=== PATIENT | female | born 1990 | race Caucasian/White ===

== ENCOUNTER → 2017-03-15 | Outpatient (CLI) | payer BC | END | disposition home or self-care (01) | LOC: MW.LAB 09:21 | PROVIDERS: ATTEND Obstetrics & Gynecology | DX: N97.9 Female infertility, unspecified (principal) | CPT/HCPCS: 36415; 82670 ==

== ENCOUNTER → 2017-03-22 | Outpatient (CLI) | payer BC | LOC: MW.LAB 08:15 | PROVIDERS: ATTEND Obstetrics & Gynecology | DX: N97.9 Female infertility, unspecified (principal) | CPT/HCPCS: 36415; 82670 ==

== ENCOUNTER → 2017-03-26 | Outpatient (CLI) | payer BC | LOC: MW.LAB 09:37 | PROVIDERS: ATTEND Obstetrics & Gynecology | DX: N97.9 Female infertility, unspecified (principal) | CPT/HCPCS: 36415; 82670; 84144 ==

== ENCOUNTER 2017-12-10 08:10 | Inpatient (IN) | payer BC ==
[2017-12-10] MEDS ORDERED: Butorphanol 1 MG/ML SDV IVPUSH PRN (08:36)
[2017-12-10] MEDS ORDERED: Methylergonovine 0.2 MG/1 ML Amp IM PRN (08:36)
[2017-12-10] MEDS ORDERED: Misoprostol 200 MCG Tab PO PRN (08:36)
[2017-12-10] MEDS ORDERED: Carboprost Tromethamine 250 MCG/1 ML Amp IM PRN (08:36)
[2017-12-10] MEDS ORDERED: Lidocaine 1% 50 ML MDV INJECT PRN (08:36)
[2017-12-10] MEDS ORDERED: Sodium Chloride 0.9% 2.5 ML Syringe FLUSH PRN (08:36)
[2017-12-10] MEDS ORDERED: Sodium Chloride 0.9% 10 ML Syringe FLUSH PRN (08:36)
[2017-12-10] MEDS ORDERED: Water For Irrigation,Sterile 1,000 ML Container IRR PRN (08:36)
[2017-12-10] MEDS ORDERED: Nalbuphine 10 MG/1 ML Vial IVPUSH PRN (08:36)
[2017-12-10] MEDS ORDERED: Terbutaline 1 MG/ML SDV SUBCUT PRN (09:04)
[2017-12-10] MEDS ORDERED: Oxytocin/0.9 % Sodium Chloride 30 UNIT/500 ML BAG IV SCH (09:15)
[2017-12-10] MEDS ORDERED: Misoprostol 25 MCG (1/4 of 100 MCG) Tab VAG SCH (09:15)
[2017-12-10] MEDS: Lactated Ringers 1,000 ML IV SCH (15:15)
[2017-12-10] MEDS ORDERED: Misoprostol 200 MCG Tab VAG SCH (20:45)
[2017-12-10] MEDS: Misoprostol 25 MCG (1/4 of 100 MCG) Tab VAG PRN (21:05)
[2017-12-11] MEDS: Misoprostol 25 MCG (1/4 of 100 MCG) Tab VAG PRN ×2 (01:08→05:04)
[2017-12-11] MEDS ORDERED: fentaNYL 100 MCG/2 ML SDV ONE (08:20)
[2017-12-11] MEDS ORDERED: Ropivacaine 0.2% 2 MG/ML 20 ML SDV ONE (08:21)
[2017-12-11] MEDS: Lactated Ringers 1,000 ML IV SCH (08:35)
[2017-12-11] MEDS ORDERED: Bupivacaine 0.5% 10 ML SDV ONE (09:37)
--- NOTE | 2017-12-11 09:56 | PCM.PREANE ---
Preanesthetic Assessment - Procedure Proposed Procedure: labor epidural - Anesthesia/Transfusion/Family Hx Anesthesia History: Prior Anesthesia Without Reaction (egg retrieval, t/a, wisdom teeth, previous epidural) Family History of Anesthesia Reaction: No Transfusion History: No Prior Transfusion(s) - Review of Systems General: No Symptoms Pulmonary: No Symptoms Cardiovascular: No Symptoms Gastrointestinal: No Symptoms Neurological: No Symptoms Other: Reports: None - Physical Assessment NPO Status Date: 12/11/17 NPO Status Time: 09:54 (cl liquids) Height: 1.78 m Weight: 97.976 kg ASA Class: 2 Mental Status: Alert & Oriented x3 Airway Class: Mallampati = 1 Dentition: Reports: Normal Dentition Thyro-Mental Finger Breadths: 3 Mouth Opening Finger Breadths: 3 ROM/Head Extension: Full Lungs: Clear to Auscultation, Normal Respiratory Effort Cardiovascular: Regular Rate, Regular Rhythm - Lab Values: Laboratory Last Values WBC 10.18 K/uL (4.0-11.0) 12/10/17 08:57 RBC 4.00 M/uL (4.30-5.90) L 12/10/17 08:57 Hgb 12.2 g/dL (12.0-16.0) 12/10/17 08:57 Hct 35.9 % (36.0-46.0) L 12/10/17 08:57 MCV 89.8 fL (80.0-98.0) 12/10/17 08:57 MCH 30.5 pg (27.0-32.0) 12/10/17 08:57 MCHC 34.0 g/dL (31.0-37.0) 12/10/17 08:57 RDW Std Deviation 44.9 fl (28.0-62.0) 12/10/17 08:57 RDW Coeff of Viraj 14 % (11.0-15.0) 12/10/17 08:57 Plt Count 157 K/uL (150-400) 12/10/17 08:57 MPV 12.80 fL (7.40-12.00) H 12/10/17 08:57 Nucleated RBC % 0.0 /100WBC 12/10/17 08:57 Nucleated RBCs # 0 K/uL 12/10/17 08:57 Blood Type A POSITIVE 12/10/17 08:57 Antibody Screen NEGATIVE 12/10/17 08:57 - Allergies Allergies/Adverse Reactions: Allergies Allergy/AdvReac Type Severity Reaction Status Date / Time No Known Allergies Allergy Verified 05/01/14 10:46 - Blood Blood Available: Yes Product(s) Available: PRBC - Acknowledgements Anesthesia Type Planned: Epidural Pt an Appropriate Candidate for the Planned Anesthesia: Yes Alternatives and Risks of Anesthesia Discussed w Pt/Guardian: Yes Pt/Guardian Understands and Agrees with Anesthesia Plan: Yes PreAnesthesia Questionnaire - Past Health History Medical/Surgical History: Denies Medical/Surgical History Respiratory History: Reports: Other (See Below) Other Respiratory History: Bronchitis recurrent x2 months with this Genitourinary History: Reports: Other (See Below) Other Genitourinary History: vaginal infections during treated with antibiotics orally x7 days. 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 Musculoskeletal History: Reports: Other (See Below) Other Musculoskeletal History: collar bone fracture left Psychiatric History: Reports: Anxiety Other Psychiatric History: no medications Hematologic History: Reports: Anemia Other Hematologic History: not with this - Infectious Disease History Infectious Disease History: Reports: Chicken Pox - Past Surgical History HEENT Surgical History: Reports: Adenoidectomy, Oral Surgery, Tonsillectomy Female Surgical History: Reports: Other (See Below) Other Female Surgeries/Procedures: Hx benign lump left not removed. - SUBSTANCE USE Smoking Status *Q: Never Smoker Tobacco Use Within Last Twelve Months: No Second Hand Smoke Exposure: No Days Per Week of Alcohol Use: 1 Number of Drinks Per Day: 1 Total Drinks Per Week: 1 Recreational Drug Use History: No - HOME MEDS Home Medications: Home Meds Multivitamin [Multi-Vitamin Daily] 1 each PO DAILY #1 05/02/14 [Rx] Iron Polysaccharides Complex [Ferrex 150] 150 mg PO DAILY 10/29/15 [History] Magnesium BID 10/29/15 [History] Ibuprofen [Motrin] 600 mg PO Q6H PRN #30 tablet 10/31/15 [Rx] - CURRENT (IN HOUSE) MEDS Current Meds: Current Medications Butorphanol Tartrate (Stadol) 1 mg IVPUSH Q1H PRN PRN Reason: Pain Last Admin: 12/10/17 22:47 Dose: 1 mg Carboprost Tromethamine (Hemabate Ds) 250 mcg IM ASDIRECTED PRN PRN Reason: Post Hemorrhage Lactated Ringer's (Ringers, Lactated) 1,000 mls @ 150 mls/hr IV ASDIRECTED MANUEILTO Last Admin: 12/11/17 08:35 Dose: 150 mls/hr Oxytocin/Sodium Chloride (Oxytocin 30 Unit/500 Ml-Ns) 30 unit in 500 mls @ 2 mls/hr IV TITRATE MANUELITO; 2 MUNITS/MIN PRN Reason: Protocol Last Titration: 12/10/17 21:00 Dose: 0 munits/min, 0 mls/hr Lidocaine HCl (Xylocaine 1%) 50 ml INJECT .ONCE PRN PRN Reason: Laceration repair Methylergonovine Maleate (Methergine) 0.2 mg IM ASDIRECTED PRN PRN Reason: Post Hemorrhage Misoprostol (Cytotec) 200 mcg PO .ONCE PRN PRN Reason: Post Hemorrhage Misoprostol (Cytotec) 25 mcg VAG .ONCE MANUELITO Last Admin: 12/10/17 09:34 Dose: 25 mcg Misoprostol (Cytotec) 25 mcg VAG Q4H PRN PRN Reason: Cervical Ripening Last Admin: 12/11/17 05:04 Dose: 25 mcg Nalbuphine HCl (Nubain) 10 mg IVPUSH Q1H PRN PRN Reason: Pain (severe 7-10) Sodium Chloride (Saline Flush) 10 ml FLUSH ASDIRECTED PRN PRN Reason: Keep Vein Open Sodium Chloride (Saline Flush) 2.5 ml FLUSH ASDIRECTED PRN PRN Reason: Keep Vein Open Sterile Water (Sterile Water For Irrigation) 1,000 ml IRR ASDIRECTED PRN PRN Reason: delivery Terbutaline Sulfate (Brethine) 0.25 mg SUBCUT ASDIRECTED PRN PRN Reason: Tacysystole Discontinued Medications Bupivacaine HCl (Sensorcaine-Mpf 0.5%) Confirm Administered Dose 10 ml .ROUTE .STK-MED ONE Stop: 12/11/17 09:38 Fentanyl (Sublimaze) Confirm Administered Dose 100 mcg .ROUTE .STK-MED ONE Stop: 12/11/17 08:21 Misoprostol (Cytotec) 25 mcg VAG Q4H MANUELITO Ropivacaine (Naropin 0.2%) Confirm Administered Dose 20 ml .ROUTE .STK-MED ONE Stop: 12/11/17 08:22
--- NOTE | 2017-12-11 10:09 | PCM.PRNOTE ---
- Free Text/Narrative Note: called to place epidural for pt labor pain. discussed procedure withrisks and benefits including nerve pain and nerve damage, bleeding, infection, unsuccessful epidural. pt agrees to proceeed. sitting up, sterile betadine scrub x 3, with sterile drape. 1%lidocaine SQ at L3 #17 touhy MICKY saline. catheter initially not easily threaded, touhy pushed forward slightly, catheter placed to 12 cm skin approximately 5 cm into space. Positive heme around catheter with threading,but no heme in catheter with aspiration, no paresthesia. test dose 1.5% lidocaine with epi 1;200,000 negative reaction. pt ABHI, bolus 10 ml 0.2% ropivicaine with 100 mcg fentanyl. Pt level noted to be T10 on Left and T12 on right. tilted to right. PCEA started with bupivicaine .125% and fentanyl 2 mcg/ml started at 8 ml/hr with PCEA bolus available of 8 ml q 15 min. hourly rate at 32 ml. pt still c/o window of pain on right, but overall pain relief improved
[2017-12-11] MEDS ORDERED: Ibuprofen 800 MG Tab PO PRN (11:51)
[2017-12-11] MEDS ORDERED: oxyCODONE 5 MG Tab PO PRN (11:51)
[2017-12-11] MEDS ORDERED: Lanolin 100% Cream 7 GM Tube TOP PRN (11:51)
[2017-12-11] MEDS ORDERED: Witch Hazel Medicated Pads 40/Jar TOP PRN (11:51)
[2017-12-11] MEDS ORDERED: Bisacodyl 10 MG Supp RECTAL PRN (11:51)
[2017-12-11] MEDS ORDERED: Acetaminophen 500 MG Tab PO PRN (11:51)
[2017-12-11] MEDS ORDERED: Methylergonovine 0.2 MG/1 ML Amp IM PRN (11:51)
[2017-12-11] MEDS ORDERED: Docusate Sodium 100 MG Cap PO PRN (11:51)
[2017-12-11] MEDS ORDERED: Benzocaine/Menthol 20%-0.5% Spray 78 GM Cannister TOP PRN (11:51)
[2017-12-11] MEDS ORDERED: Ampicillin/Sulbactam Na 3 GM in Sodium Chloride 0.9% 100 ML IV ONE (11:52)
--- NOTE | 2017-12-11 12:49 | PCM.SN ---
- Free Text/Narrative Note: Called for breakthrough pain. Pt states the lower Rt side of her abdomen is hurting with contractions. Pt rates pain 7/10. 0.5% Bupivacaine 7 mL was given via the epidural. After 30 minutes the patient states her pain is 0/10. VSS.
--- NOTE | 2017-12-11 17:37 | OR ---
SURGEON: Ysabel Etsrada M.D. DATE OF PROCEDURE: 12/10/2017 PREOPERATIVE DIAGNOSES: 1. A 39 and 2/7th week intrauterine . 2. Circumvallate placenta. 3. IVF . POSTOPERATIVE DIAGNOSES: 1. A 39 and 2/7th week intrauterine . 2. Circumvallate placenta. 3. IVF . PROCEDURES: 1. Cytotec and Pitocin. 2. Induction of labor. 3. Term spontaneous vaginal delivery. 4. Manual extraction of the placenta. 5. Repair of second-degree laceration. ANESTHESIA: Epidural. ESTIMATED BLOOD LOSS: Less than 300 mL. FINDINGS: Live born male, score 8 and 10. Weight is pending at the time of dictation. The placenta was circumvallate with membranous cord insertion, manual exploration of the uterus. After manual removal of the placenta, revealed no remaining placental fragments. COMPLICATIONS: None known. DISPOSITION: Mother and baby are in LDRP in good condition. BRIEF HISTORY: This is a 27-year-old female, she is -0-0-1. She presents at 39 and 1/7th weeks gestation for induction of labor due to IVF and on circumvallate placenta. She initially received a single dose of Cytotec followed by Pitocin. She was 1 cm, 70%, and -2 station with this Pitocin throughout a 12 hour time. She had no cervical change. Therefore, the Pitocin was discontinued. The Cytotec was repeated overnight and by morning, she was 3 cm, 80%, and 0 station. Artificial rupture of membranes was performed. Clear fluid noted. She received an epidural for pain control. Category 1 heart tones continued throughout labor. She progressed to complete. DESCRIPTION OF PROCEDURE: With the patient in dorsal lithotomy position, the patient pushed over a 12 minute time period to a 5+ station, at which time the head delivered spontaneously and atraumatically over the perineum with support with subsequent delivery of the 's shoulders and body without difficulty. The was bulb suctioned by nose and mouth, and the was handed to the mother in the presence of the nurse attending delivery. The is a liveborn male, score 8 and 10, weight is pending at the time of dictation. After the cord had ceased to pulsate, it was doubly clamped and cut. Cord blood was collected for cord ABGs as well as routine cord blood sampling. Pitocin was initiated after delivery the to assist with delivery of the placenta. Fundal massage was also performed and the portion of the placenta had moved to the lower uterine segment. I did assist with the delivery of the placenta; however, there were trailing membranes and noted a circumvallate placenta after manual exploration was performed with complete removal of the remaining membranes, and no further tissue remaining in the uterus. She will be continued on Unasyn due to manual exploration and manual removal of the placenta. Upon inspection, the pelvis and perineum, there were no periurethral, vaginal sidewall, cervical, or rectal lacerations. There was a small second-degree perineal laceration that was repaired with a running locked suture of 2-0 Caprosyn for the vaginal mucosa. A deep running suture of the same for the perineum and a subcuticular suture of the same for the skin. Final sponge, needle, and instrument counts were reported as correct. There were no complications. Mother and baby remained in LDRP in good condition. TIARA MARIEE /[id number]
[2017-12-11] MEDS: Ampicillin/Sulbactam Na 1.5 GM in Sodium Chloride 0.9% 50 ML IV SCH (18:23)
[2017-12-12] MEDS: Ampicillin/Sulbactam Na 1.5 GM in Sodium Chloride 0.9% 50 ML IV SCH ×2 (00:15→05:39)
[2017-12-12 04:56] VITALS: BP 116/68
--- NOTE | 2017-12-12 10:42 | PCM.PNPP ---
- General Info Functional Status: Reports: Pain Controlled, Tolerating Diet, Ambulating, Urinating - Review of Systems General: Reports: No Symptoms HEENT: Reports: No Symptoms Pulmonary: Reports: No Symptoms Cardiovascular: Reports: No Symptoms Gastrointestinal: Reports: No Symptoms Genitourinary: Reports: No Symptoms Musculoskeletal: Reports: No Symptoms Skin: Reports: No Symptoms Neurological: Reports: No Symptoms Psychiatric: Reports: No Symptoms - Patient Data Vital Signs - Most Recent: Last Vital Signs Temp 36.6 C 12/12/17 04:10 Pulse 63 12/12/17 04:10 Resp 16 12/12/17 04:10 BP 116/68 12/12/17 04:10 Pulse Ox 97 12/12/17 04:10 Weight - Most Recent: 97.976 kg Lab Results - Last 24 Hours: Laboratory Results - last 24 hr 12/12/17 Range/Units 05:07 Hgb 12.3 (12.0-16.0) g/dL Hct 36.4 (36.0-46.0) % Med Orders - Current: Current Medications Acetaminophen (Tylenol Extra Strength) 1,000 mg PO Q4H PRN PRN Reason: Pain Benzocaine/Menthol (Dermoplast Pain Relief 20%-0.5% [place]) 78 gm TOP ASDIRECTED PRN PRN Reason: Perineal Comfort Measure Last Admin: 12/11/17 14:30 Dose: 1 spray Bisacodyl (Dulcolax) 10 mg RECTAL .ONCE PRN PRN Reason: Constipation Docusate Sodium (Colace) 100 mg PO BID PRN PRN Reason: Constipation Emollient Ointment (Lansinoh Hpa) 0 gm TOP ASDIRECTED PRN PRN Reason: Sore Nipples Ibuprofen (Motrin) 800 mg PO Q6H PRN PRN Reason: Pain Methylergonovine Maleate (Methergine) 0.2 mg IM .ONCE PRN PRN Reason: Excessive Vaginal Bleeding Oxycodone HCl (Oxycodone) 5 mg PO Q2H PRN PRN Reason: Pain Witch Kayla (Tucks) 1 pad TOP ASDIRECTED PRN PRN Reason: comfort care Last Admin: 12/11/17 18:26 Dose: 1 applic Discontinued Medications Bupivacaine HCl (Sensorcaine-Mpf 0.5%) Confirm Administered Dose 10 ml .ROUTE .STK-MED ONE Stop: 12/11/17 09:38 Butorphanol Tartrate (Stadol) 1 mg IVPUSH Q1H PRN PRN Reason: Pain Last Admin: 12/10/17 22:47 Dose: 1 mg Carboprost Tromethamine (Hemabate Ds) 250 mcg IM ASDIRECTED PRN PRN Reason: Post Hemorrhage Fentanyl (Sublimaze) Confirm Administered Dose 100 mcg .ROUTE .STK-MED ONE Stop: 12/11/17 08:21 Lactated Ringer's (Ringers, Lactated) 1,000 mls @ 150 mls/hr IV ASDIRECTED MANUELITO Last Admin: 12/11/17 08:35 Dose: 150 mls/hr Oxytocin/Sodium Chloride (Oxytocin 30 Unit/500 Ml-Ns) 30 unit in 500 mls @ 2 mls/hr IV TITRATE MANUELITO; 2 MUNITS/MIN PRN Reason: Protocol Last Titration: 12/11/17 11:24 Dose: 500 munits/min, 500 mls/hr Ampicillin Sodium/Sulbactam (Sodium 3 gm/ Sodium Chloride) 100 mls @ 200 mls/ hr IV ONETIME ONE Stop: 12/11/17 12:21 Last Admin: 12/11/17 12:38 Dose: 200 mls/hr Ampicillin Sodium/Sulbactam (Sodium 1.5 gm/ Sodium Chloride) 50 mls @ 200 mls/ hr IV Q6H [facility] Stop: 12/12/17 06:14 Last Admin: 12/12/17 05:39 Dose: 200 mls/hr Lidocaine HCl (Xylocaine 1%) 50 ml INJECT .ONCE PRN PRN Reason: Laceration repair Methylergonovine Maleate (Methergine) 0.2 mg IM ASDIRECTED PRN PRN Reason: Post Hemorrhage Misoprostol (Cytotec) 200 mcg PO .ONCE PRN PRN Reason: Post Hemorrhage Misoprostol (Cytotec) 25 mcg VAG .ONCE MANUELITO Last Admin: 12/10/17 09:34 Dose: 25 mcg Misoprostol (Cytotec) 25 mcg VAG Q4H PRN PRN Reason: Cervical Ripening Last Admin: 12/11/17 05:04 Dose: 25 mcg Misoprostol (Cytotec) 25 mcg VAG Q4H MANUELITO Nalbuphine HCl (Nubain) 10 mg IVPUSH Q1H PRN PRN Reason: Pain (severe 7-10) Ropivacaine (Naropin 0.2%) Confirm Administered Dose 20 ml .ROUTE .STK-MED ONE Stop: 12/11/17 08:22 Sodium Chloride (Saline Flush) 10 ml FLUSH ASDIRECTED PRN PRN Reason: Keep Vein Open Sodium Chloride (Saline Flush) 2.5 ml FLUSH ASDIRECTED PRN PRN Reason: Keep Vein Open Sterile Water (Sterile Water For Irrigation) 1,000 ml IRR ASDIRECTED PRN PRN Reason: delivery Last Admin: 12/11/17 11:10 Dose: 1,000 ml Terbutaline Sulfate (Brethine) 0.25 mg SUBCUT ASDIRECTED PRN PRN Reason: Tacysystole - Interaction Disposition, : in Room with Family Infant Feeding: Breastfed Infant; Nursed Well Support Person: , Mother - Recovery Exam Fundal Tone: Firm Fundal Level: 3 Fingerbreadths Below Umbilicus Fundal Placement: Midline Lochia Amount: Scant, Small Lochia Color: Rubra/Red Perineum Description: Other (see below) Other Perinuem Description: 2nd degree midline laceration Episiotomy/Laceration: Approximated Bladder Status: Voiding Urinary Elimination: Voided - Exam General: Alert, Oriented HEENT: Pupils Equal Neck: Supple Lungs: Clear to Auscultation, Normal Respiratory Effort Cardiovascular: Regular Rate, Regular Rhythm GI/Abdominal Exam: Normal Bowel Sounds, Soft, Non-Tender, No Organomegaly, No Distention Extremities: Normal Inspection, Normal Range of Motion, Non-Tender. No: No Pedal Edema (1+ equal bilaterally.) Skin: Warm, Dry, Intact Neurological: No New Focal Deficit Psy/Mental Status: Alert, Normal Affect, Normal Mood - Problem List & Annotations (1) Vaginal delivery SNOMED Code(s): 793606519 Code(s): O80 - ENCOUNTER FOR FULL-TERM UNCOMPLICATED DELIVERY Status: Acute Current Visit: No (2) Circumvallate placenta SNOMED Code(s): 9754332 Code(s): O43.119 - CIRCUMVALLATE PLACENTA, UNSPECIFIED TRIMESTER Status: Acute Current Visit: Yes Qualifiers: Trimester: third trimester Qualified Code(s): O43.113 - Circumvallate placenta, third trimester - Problem List Review Problem List Initiated/Reviewed/Updated: Yes - My Orders Last 24 Hours: My Active Orders 12/11/17 11:51 Patient Status [ADT] Routine May Shower [RC] ASDIRECTED Up ad Delilah [RC] ASDIRECTED Vital Signs [RC] PER UNIT ROUTINE Acetaminophen [Tylenol Extra Strength] 1,000 mg PO Q4H PRN Benzocaine/Menthol [Dermoplast Pain Relief 20%-0.5% [place]] 78 gm TOP ASDIRECTED PRN Bisacodyl [Dulcolax] 10 mg RECTAL .ONCE PRN Docusate Sodium [Colace] 100 mg PO BID PRN Ibuprofen [Motrin] 800 mg PO Q6H PRN Lanolin [Lansinoh HPA] See Dose Instructions TOP ASDIRECTED PRN Methylergonovine [Methergine] 0.2 mg IM .ONCE PRN Witch Kayla [Tucks] 1 pad TOP ASDIRECTED PRN oxyCODONE 5 mg PO Q2H PRN Assess Lochia [WOMSER] Per Unit Routine Assess Uterine Involution [WOMSER] Per Unit Routine Perineal Care [OM.PC] Per Unit Routine Peripheral IV Discontinue [OM.PC] Routine Resuscitation Status Routine 12/11/17 Lunch Regular Diet [DIET] - Assessment Assessment:: PPD#1 after , stable, afebrile since delivery, completed 24 hours of Unasyn, would like to go home today. - Plan Plan:: Dismiss to home, discharge instructions reviewed.
--- NOTE | 2017-12-12 17:39 | PCM48HPAN ---
Post Anesthesia Note - EVALUATION WITHIN 48HRS OF ANESTHETIC Vital Signs in Normal Range: Yes Patient Participated in Evaluation: Yes Respiratory Function Stable: Yes Airway Patent: Yes Cardiovascular Function Stable: Yes Hydration Status Stable: Yes Pain Control Satisfactory: Yes Nausea and Vomiting Control Satisfactory: Yes Mental Status Recovered: Yes
== END 2017-12-12 13:50 | disposition home or self-care (01) | DRG 541 ==
LOC: MW.OBCHECK 08:10 → MW.OB 08:43 → OBSVTOIN 12-11 11:51 → MW.OB 12-11 19:52
PROVIDERS: ADMIT Obstetrics & Gynecology; ATTEND Obstetrics & Gynecology
PROC: 10E0XZZ Delivery of Products of Conception, External Approach (ICD-10-PCS; principal; 2017-12-11)
PROC: 3E0P7VZ Introduction of Hormone into Female Reproductive, Via Natural or Artificial Opening (ICD-10-PCS; 2017-12-11)
PROC: 10907ZC Drainage of Amniotic Fluid, Therapeutic from Products of Conception, Via Natural or Artificial Opening (ICD-10-PCS; 2017-12-11)
PROC: 3E033VJ Introduction of Other Hormone into Peripheral Vein, Percutaneous Approach (ICD-10-PCS; 2017-12-11)
PROC: 0KQM0ZZ Repair Perineum Muscle, Open Approach (ICD-10-PCS; 2017-12-11)
PROC: 10D17Z9 Manual Extraction of Products of Conception, Retained, Via Natural or Artificial Opening (ICD-10-PCS; 2017-12-11)
DX: O70.1 Second degree perineal laceration during delivery (principal); O43.113 Circumvallate placenta, third trimester; O09.813 Supervision of pregnancy resulting from assisted reproductive technology, third trimester; Z3A.39 39 weeks gestation of pregnancy; Z37.0 Single live birth
CPT/HCPCS: 36415; 51702; 59025; 59409; 85014; 85018; 85027; 86850; 86900; 86901; 88307; A9270-GY; J0287; J0295; J0595; J2590; J2795; J3010; J7030; J7050; J7120

== ENCOUNTER 2023-03-02 16:51 | Inpatient (IN) | payer BC ==
[2023-03-02] MEDS ORDERED: Sodium Chloride 0.9% 10 ML Syringe FLUSH PRN (18:00)
[2023-03-02] MEDS ORDERED: Tranexamic Acid 1,000 MG in Sodium Chloride 0.9% 100 ML IV PRN (18:00)
[2023-03-02] MEDS ORDERED: Sodium Chloride 0.9% 20 ML SDV IV PRN (18:00)
[2023-03-02] MEDS ORDERED: Lactated Ringers 1,000 ML IV SCH (18:00)
[2023-03-02] MEDS ORDERED: Butorphanol 1 MG/ML SDV IVPUSH PRN (18:00)
[2023-03-02] MEDS ORDERED: Carboprost Tromethamine 250 MCG/1 ML Amp IM PRN (18:00)
[2023-03-02] MEDS ORDERED: Lidocaine 1% 50 ML MDV INJECT PRN (18:00)
[2023-03-02] MEDS ORDERED: Misoprostol 200 MCG Tab PO PRN (18:00)
[2023-03-02] MEDS ORDERED: Sodium Chloride 0.9% 2.5 ML Syringe FLUSH PRN (18:00)
[2023-03-02] MEDS ORDERED: Water For Irrigation,Sterile 1,000 ML Container IRR PRN (18:00)
[2023-03-02] MEDS ORDERED: Methylergonovine 0.2 MG/1 ML Amp IM PRN (18:00)
[2023-03-02] MEDS ORDERED: Oxytocin/0.9 % Sodium Chloride 30 UNIT/500 ML BAG IV SCH (18:00)
[2023-03-02] MEDS ORDERED: Misoprostol 25 MCG (1/4 of 100 MCG) Tab VAG SCH (22:00)
[2023-03-03] MEDS ORDERED: Ropivacaine/PF 400 MG/200 ML PCA ONE (00:42)
[2023-03-03] MEDS ORDERED: Bupivacaine 0.5% 10 ML SDV ONE (00:42)
[2023-03-03] MEDS ORDERED: ePHEDrine 50 MG/ML SDV IVPUSH PRN ×2 (01:13)
[2023-03-03] MEDS ORDERED: Phenylephrine HCl 0.5 MG/5 ML AMP IVPUSH PRN (01:13)
[2023-03-03] MEDS ORDERED: Ropivacaine HCl/PF 400 MG in Premix Bag 1 BAG EPIDUR SCH (01:15)
[2023-03-03] MEDS ORDERED: Oxytocin/0.9 % Sodium Chloride 30 UNIT/500 ML BAG IV SCH (02:15)
[2023-03-03] MEDS ORDERED: Lanolin 100% Cream 7 GM Tube TOP PRN (05:03)
[2023-03-03] MEDS ORDERED: Ibuprofen 400 MG Tab PO PRN (05:03)
[2023-03-03] MEDS ORDERED: Docusate Sodium 100 MG Cap PO PRN (05:03)
[2023-03-03] MEDS ORDERED: Witch Hazel Medicated Pads 40/Jar TOP PRN (05:03)
[2023-03-03] MEDS ORDERED: Tranexamic Acid 1,000 MG in Sodium Chloride 0.9% 100 ML IV PRN (05:03)
[2023-03-03] MEDS ORDERED: Acetaminophen 500 MG Tab PO PRN ×2 (05:03)
[2023-03-03] MEDS ORDERED: Benzocaine/Menthol 20%-0.5% Spray 78 GM Cannister TOP PRN (05:03)
[2023-03-03] MEDS ORDERED: Bisacodyl 10 MG Supp RECTAL PRN (05:03)
[2023-03-03] MEDS ORDERED: Methylergonovine 0.2 MG/1 ML Amp IM PRN (05:03)
[2023-03-03] MEDS ORDERED: Measles, Mumps & Rubella Vaccine 0.5 ML SDV SUBCUT ONE (05:03)
[2023-03-03] MEDS ORDERED: Ibuprofen 800 MG Tab PO PRN (05:03)
[2023-03-04 08:46] VITALS: BP 120/75; PULSE 72
== END 2023-03-04 13:10 | disposition home or self-care (01) | DRG 560 ==
LOC: MW.OBCHECK 16:51 → MW.OB 16:52 → MW.OBCHECK 20:00 → OBSVTOIN 03-03 04:33 → MW.OB 03-03 09:57
PROVIDERS: ADMIT Obstetrics & Gynecology; ATTEND Obstetrics & Gynecology
PROC: 10E0XZZ Delivery of Products of Conception, External Approach (ICD-10-PCS; principal; 2023-03-02)
PROC: 3E033VJ Introduction of Other Hormone into Peripheral Vein, Percutaneous Approach (ICD-10-PCS; 2023-03-02)
PROC: 3E0P7VZ Introduction of Hormone into Female Reproductive, Via Natural or Artificial Opening (ICD-10-PCS; 2023-03-02)
PROC: 0HQ9XZZ Repair Perineum Skin, External Approach (ICD-10-PCS; 2023-03-02)
DX: O42.02 Full-term premature rupture of membranes, onset of labor within 24 hours of rupture (principal); O70.9 Perineal laceration during delivery, unspecified; Z37.0 Single live birth; Z3A.38 38 weeks gestation of pregnancy
CPT/HCPCS: 01967; 36415; 59409; 82803; 84112; 85014; 85018; 85027; 86592; 86850; 86900; 86901; A9270-GY; J2590; J2795; J3490; J7120

== ENCOUNTER 2025-01-26 20:33 | Emergency (ER) | payer BC ==
[2025-01-26] MEDS ORDERED: Sodium Chloride 0.9% 10 ML Syringe FLUSH PRN (22:15)
[2025-01-26] MEDS ORDERED: Sodium Chloride 0.9% 2.5 ML Syringe FLUSH PRN (22:15)
[2025-01-26] MEDS ORDERED: Sodium Chloride 0.9% 20 ML SDV IV PRN (22:15)
[2025-01-26] MEDS: Acetaminophen 500 MG Tab PO ONE (22:26)
[2025-01-26] MEDS: Sodium Chloride 0.9% 1,000 ML IV SCH (22:27)
[2025-01-26 22:31] LABS: BASOPHILS ABSOLUTE AUTO 0.03 K/uL (0.00-0.20); BASOPHILS PERCENT AUTO 0.4 % (0.0-1.0); EOSINOPHILS ABSOLUTE AUTO 0.01 K/uL (0.00-0.45); EOSINOPHILS PERCENT AUTO 0.1 % (0.0-6.0); HEMATOCRIT 37.4 % (37.0-47.0); HEMOGLOBIN 12.4 g/dL (12.0-16.0); IMMATURE GRAN ABSOLUTE AUTO 0.02 K/uL (0.00-0.05); IMMATURE GRAN PERCENT AUTO 0.3 % (0.0-0.4); LYMPHOCYTES ABSOLUTE AUTO 1.17 K/uL (1.00-4.80); LYMPHOCYTES PERCENT AUTO 17.4 % (24.0-44.0); MEAN CORPUSCULAR HEMOGLOBIN 28.4 pg (28.0-32.0); MEAN CORPUSCULAR HGB CONC 33.2 g/dL (32.0-36.0); MEAN CORPUSCULAR VOLUME 85.6 fL (83.0-99.0); MONOCYTES ABSOLUTE AUTO 0.57 K/uL (0.00-0.80); MONOCYTES PERCENT AUTO 8.5 % (0.0-8.0); NEUTROPHILS ABSOLUTE AUTO 4.94 K/uL (1.80-7.70); NEUTROPHILS PERCENT AUTO 73.3 % (41.0-71.0); PLATELET COUNT,PLT 191 K/uL (150-400); RED BLOOD CELL COUNT 4.37 M/uL (4.10-5.30); WHITE BLOOD CELL COUNT,WBC 6.74 K/uL (3.9-11.3)
[2025-01-26 22:45] LABS: CALCIUM 8.9 mg/dL (8.5-10.1); CARBON DIOXIDE,CO2 27.4 mmol/L (21.0-32.0); CREATININE 1.1 mg/dL (0.6-1.0); EST CRCL DRUG DOSING (CG) 77.93 mL/min; POTASSIUM,K 3.8 mmol/L (3.5-5.1)
[2025-01-27 00:06] VITALS: BP 111/72; PULSE 99
[2025-01-27] MEDS: Azithromycin 250 MG Tab PO ONE (00:16)
== END 2025-01-27 00:40 | disposition home or self-care (01) ==
LOC: MW.ED 20:33
DX: J18.9 Pneumonia, unspecified organism (principal)
CPT/HCPCS: 36415; 71046; 80048; 84702; 85025; 87428; 96360; 99283; A9270; J7030

== ENCOUNTER 2025-09-12 07:28 | Emergency (ER) | payer BC ==
[2025-09-12 08:35] LABS: BASOPHILS ABSOLUTE AUTO 0.03 K/uL (0.00-0.20); BASOPHILS PERCENT AUTO 0.5 % (0.0-1.0); EOSINOPHILS ABSOLUTE AUTO 0.14 K/uL (0.00-0.45); EOSINOPHILS PERCENT AUTO 2.5 % (0.0-6.0); IMMATURE GRAN ABSOLUTE AUTO 0.02 K/uL (0.00-0.05); IMMATURE GRAN PERCENT AUTO 0.4 % (0.0-0.4); LYMPHOCYTES ABSOLUTE AUTO 1.90 K/uL (1.00-4.80); LYMPHOCYTES PERCENT AUTO 34.5 % (24.0-44.0); MEAN PLATELET VOLUME 10.6 fL (9.4-12.3); MONOCYTES ABSOLUTE AUTO 0.34 K/uL (0.00-0.80); MONOCYTES PERCENT AUTO 6.2 % (0.0-8.0); NEUTROPHILS ABSOLUTE AUTO 3.07 K/uL (1.80-7.70); NEUTROPHILS PERCENT AUTO 55.9 % (41.0-71.0); NRBC ABSOLUTE 0.00 K/uL (0.00-0.02); NRBC PERCENT 0.0 /100WBC (0.0-0.2); PLATELET COUNT,PLT 221 K/uL (150-400); RED BLOOD CELL COUNT 4.53 M/uL (4.10-5.30); WHITE BLOOD CELL COUNT,WBC 5.50 K/uL (3.9-11.3)
[2025-09-12] MEDS: Ondansetron 4 MG/2 ML SDV IVPUSH ONE (08:58)
[2025-09-12 09:22] LABS: A/G RATIO 1.3 (0.9-1.6); ALANINE AMINOTRANSFERASE,ALT 26.0 IU/L (14-63); ASPARTATE AMNIOTRANSFERASE,AST 15.0 IU/L (15-37); BILIRUBIN TOTAL 0.4 mg/dL (0.2-1.0); BLOOD UREA NITROGEN,BUN 16.0 mg/dL (7.0-18.0); CARBON DIOXIDE,CO2 29.6 mmol/L (21.0-32.0); CHLORIDE,CL 106.0 mmol/L (98-107); CREATININE 0.8 mg/dL (0.6-1.0); EST CRCL DRUG DOSING (CG) 106.14 mL/min; ESTIMATED GFR 98.0 mL/min (>60); GLUCOSE RANDOM 83.0 mg/dL (74-106); POTASSIUM,K 4.4 mmol/L (3.5-5.1); PROTEIN TOTAL,TP 7.2 g/dL (6.4-8.2); SODIUM,NA 141.0 mmol/L (136-145)
[2025-09-12 10:04] VITALS: BP 119/78; PULSE 78
[2025-09-12 19:11] LABS: APPEARANCE,URINE CLEAR; GLUCOSE,URINE NEGATIVE (NEGATIVE); OCCULT BLOOD,URINE NEGATIVE (NEGATIVE)
== END 2025-09-12 10:05 | disposition home or self-care (01) ==
LOC: MW.ED 07:28
DX: R42 Dizziness and giddiness (principal)
CPT/HCPCS: 36415; 70450; 80053; 81003; 81025; 84443; 85025; 96361; 96374; 99284; A9270; J2405; J7030